=== PATIENT | male | born 1960 | race Caucasian/White ===

== ENCOUNTER → 2020-10-23 | Outpatient (CLI) | payer MEDICARE ==
--- NOTE | 2020-10-24 13:42 | MR ---
EXAMINATION TYPE: MR cervical spine wo/w con DATE OF EXAM: 10/23/2020 COMPARISON: Cervical spine MRI 03/15/2015 HISTORY: Neck pain into jagdish upper extremities, headaches, slip and fall injury. TECHNIQUE: Multiplanar, multisequence images of the cervical spine were acquired utilizing 8.5 mL intravenous Ga davist gadolinium contrast. Diffusion weighted imaging was performed. C2-C3: Posterior disc bulge causes mild anterior mass effect on the thecal sac. Facet arthropathy wit h some uncovertebral joint hypertrophy encroaches mildly on the neural foramina. No significant spina l stenosis. C3-C4: Posterior extension endplate disc complex effaces the anterior thecal sac, there is mild to mo derate central canal stenosis. Foraminal encroachment is present left greater than right due to uncov ertebral joint hypertrophy, facet arthropathy. C4-C5: Posterior extension of endplate disc complex results in mass effect on the anterior thecal sac . Mild to moderate central canal stenosis is again noted. There is bilateral foraminal encroachment. C5-C6: Bilateral foraminal encroachment is present. No evident recurrent disc herniation. No signific ant spinal stenosis. C6-C7: No significant spinal stenosis or disc herniation. Uncovertebral joint hypertrophy and facet a rthropathy results in left-sided foraminal encroachment. C7-T1: Uncovertebral joint hypertrophy encroaches upon the neural foramina. No significant spinal zack nosis, and there is posterior extension endplate disc complex causing mild anterior mass effect on th e thecal sac. Patient is post anterior cervical fusion and discectomy at C5-C7. Loss of disc height is present at i ntervertebral levels, there is spondylosis at C2-3, C3-4 with associated loss of disc height, endplat e discogenic marrow signal changes noted.. There is normal alignment. Cervical spinal cord is of no rmal signal. Craniovertebral junction relationships are within normal limits. No abnormal enhanceme nt following contrast administration. IMPRESSION: Stopped changes, multilevel foraminal encroachment, degenerative disc disease and spinal stenosis as described
== END | disposition home or self-care (01) ==
LOC: RADMRIMAIN 07:23
PROVIDERS: ATTEND Orthopaedic Surgery Orthopaedic Surgery of the Spine
DX: M48.02 Spinal stenosis, cervical region (principal)
CPT/HCPCS: 72156; A9585

== ENCOUNTER 2020-12-14 21:34 | Observation (INO) | payer MEDICARE ==
--- NOTE | 2020-12-14 22:04 | ED ---
Chest Pain HPI - General Chief Complaint: Chest Pain Stated Complaint: chest pain,L arm pain Time Seen by Provider: 12/14/20 21:49 Source: patient Mode of arrival: ambulatory Limitations: no limitations - Related Data Home Medications Medication Instructions Recorded Confirmed Aspirin EC [Ecotrin Low Dose] 81 mg PO DAILY 12/14/20 12/14/20 Cyclobenzaprine [Flexeril] 10 mg PO TID 12/14/20 12/14/20 HYDROcodone/APAP 10-325MG [[place] 1 tab PO TID 12/14/20 12/14/20 10-325] Pravastatin Sodium [Pravachol] 20 mg PO HS 12/14/20 12/14/20 Tamsulosin [Flomax] 0.4 mg PO DAILY 12/14/20 12/14/20 Allergies Allergy/AdvReac Type Severity Reaction Status Date / Time meloxicam Allergy Rash/Hives Verified 12/14/20 22:39 Kifihdf-Svz-Trh Reductase Allergy Unknown Verified 12/14/20 22:39 Inhibitor Review of Systems ROS Statement: Those systems with pertinent positive or pertinent negative responses have been documented in the HPI. ROS Other: All systems not noted in ROS Statement are negative. EKG Findings - EKG Comments: EKG Findings:: EKG is sinus rhythm 81 VT 160 QRS 80 QTC 425 Past Medical History Past Medical History: Coronary Artery Disease (CAD) Additional Past Medical History / Comment(s): chronic neck pain History of Any Multi-Drug Resistant Organisms: None Reported Additional Past Surgical History / Comment(s): aortic repair. neck fusion Past Psychological History: No Psychological Hx Reported Smoking Status: Current every day smoker Past Alcohol Use History: None Reported Past Drug Use History: None Reported General Exam Limitations: no limitations Course Vital Signs 12/14/20 12/14/20 21:42 23:22 Temperature 98.9 F Pulse Rate 85 80 Respiratory 20 18 Rate Blood Pressure 117/76 133/89 O2 Sat by Pulse 94 L 94 L Oximetry Disposition Clinical Impression: Chest pain Disposition: ADMITTED IP TO THIS HOSP Condition: Undetermined Instructions (If sedation given, give patient instructions): Chest Pain (ED) Is patient prescribed a controlled substance at d/c from ED?: No Referrals: Noah Mcdonough MD [Primary Care Provider] - 1-2 days
--- NOTE | 2020-12-14 22:26 | XR ---
EXAMINATION TYPE: XR chest 2V DATE OF EXAM: 12/14/2020 COMPARISON: NONE HISTORY: Chest pain TECHNIQUE: FINDINGS: There is some mild atelectasis at the lung bases. There is some pleural reaction at both michael ng bases. There is no obvious heart failure. There are sternal wires. Heart size is normal. There are chest leads. IMPRESSION: There is some pleural reaction and atelectasis at both lung bases. No obvious heart failu re.
[2020-12-14 22:28] LABS: Basophils # (A) 0.1 k/uL (0-0.2); Basophils % (A) 1 %; Eosinophils # (A) 0.3 k/uL (0-0.7); Eosinophils % (A) 3 %; HCT 44.7 % (39.0-53.0); HGB 15.6 gm/dL (13.0-17.5); Lymphocytes # (A) 1.2 k/uL (1.0-4.8); Lymphocytes % (A) 10 %; MCH 30.2 pg (25.0-35.0); MCHC 34.8 g/dL (31.0-37.0); MCV 86.7 fL (80.0-100.0); Mean Platelet Volume 7.3; Monocytes # (A) 0.9 k/uL (0-1.0); Monocytes % (A) 7 %; Neutrophils # (A) 9.8 k/uL (1.3-7.7); Neutrophils % (A) 79 %; Platelet Count 254 k/uL (150-450); RBC 5.15 m/uL (4.30-5.90); RDW 12.9 % (11.5-15.5); WBC 12.4 k/uL (3.8-10.6)
[2020-12-14 22:39] LABS: Partial Thromboplastin Time 25.3 sec (22.0-30.0); Prothrombin Time 10.7 sec (9.0-12.0)
[2020-12-14 22:40] LABS: ALT 24 U/L (4-49); AST 30 U/L (17-59); African American GFR (CKD) >90 (>60 ml/min/1.73 sqM); Albumin 3.9 g/dL (3.5-5.0); Alkaline Phosphatase 89 U/L (38-126); Anion Gap 7 mmol/L; Blood Urea Nitrogen 9 mg/dL (9-20); Calcium 9.5 mg/dL (8.4-10.2); Carbon Dioxide 24 mmol/L (22-30); Chloride 103 mmol/L (98-107); Glucose 108 mg/dL (74-99); Magnesium 1.7 mg/dL (1.6-2.3); Non-African American GFR(CKD) >90 (>60 ml/min/1.73 sqM); Sodium 134 mmol/L (137-145); Total Bilirubin 0.4 mg/dL (0.2-1.3); Total Protein 6.1 g/dL (6.3-8.2)
[2020-12-14] MEDS ORDERED: ASPIRIN 81 MG PO STA (23:52)
[2020-12-14] MEDS ORDERED: NITROGLYCERIN SL TABS 0.4 MG TAB SUBLINGUAL PRN (23:52)
[2020-12-14] MEDS ORDERED: MORPHINE SULFATE 4 MG/ML SYRINGE IV PRN (23:52)
[2020-12-15] MEDS: SODIUM CHLORIDE 0.9% 1,000 ML IV SCH ×2 (00:07→23:32)
--- NOTE | 2020-12-15 01:30 | P.HPIM ---
History of Present Illness H&P Date: 12/15/20 Patient is a 60-year-old male with a PMH of coronary artery disease, hyperlipidemia, BPH, and tobacco abuse who presented to the emergency room with complaints of left-sided chest pain. The patient reports that his pain started on Wednesday after he went on a row boat and felt that he may have pulled a muscle. He initially did not think much of it until the pain continued to gradually worsened, and has now become severely pleuritic and tender. He reports that maximal intensity is 10 out of 10, throughout the left side of the chest but is able to point to the precise area. Reports that coughing or taking a deep breath significantly worsens the pain. Notes that sitting up and walking alleviate the pain. Denied nausea, vomiting, diaphoresis. Denied fever, chills, cough. Denied headache, weakness, numbness, tingling, visual disturbances. Patient denied history of DVT, leg swelling, or prolonged immobilization or recent travel. EKG in the emergency room revealed normal sinus rhythm at [address]/T-wave changes noted as reviewed by me. Chest x-ray revealed some pleural reaction and atelectasis at both lung bases. Laboratory evaluation revealed a troponin less than 0.012. Review of systems: Pertinent positives and negatives as discussed in HPI, a complete review of sys tems was performed and all other systems are negative. Physical examination: General: non toxic, no distress, appears at stated age, normal weight Derm: no unusual rashes/lesions no unusual ecchymoses, warm, dry Head: atraumatic, normocephalic, symmetric Eyes: EOMI, no lid lag, anicteric sclera, pupils equal round reactive to light ENT: Nose and ears atraumatic, no thrush, no pharyngeal erythema Neck: No thyromegaly, no cervical lymphadenopathy, trachea midline, supple Mouth: no lip lesion, mucus membranes moist Cardiovascular: S1S2 reg, no murmur, positive posterior tibial pulse bilateral, no edema, capillary refill less than 2 seconds, L sided chest tenderness Lungs: CTA bilateral, no rhonchi, no rales , no accessory muscle use Abdominal: soft, nontender to palpation, no guarding, no appreciable organomegaly, normal bowel sounds Ext: no gross muscle atrophy, muscle strength 5 out of 5 in all 4 extremities grossly, no contractures, Neuro: CN II-XI grossly intact, light touch intact all 4 extremities, finger to nose within normal limits, Psych: Alert, oriented, appropriate affect Assessment/plan Atypical chest pain, rule out ACS -Continue with aspirin -Cardiac monitoring -Cardiology consult -Trend troponin -Check D-Dimer Leukocytosis -Likely due to acute stressor -No signs of active infection at this time Chronic conditions: Hyperlipidemia, BPH -Continue with home meds DVT prophylaxis -Heparin subcu The patient is admitted with an anticipated less than 2 midnight stay for evaluation of chest pain CODE STATUS:Full Code Discussed with: Patient Anticipated discharge date: in am Anticipated discharge place: Home Past Medical History Past Medical History: Coronary Artery Disease (CAD) Additional Past Medical History / Comment(s): chronic neck pain History of Any Multi-Drug Resistant Organisms: None Reported Additional Past Surgical History / Comment(s): aortic repair. neck fusion Past Psychological History: No Psychological Hx Reported Smoking Status: Current every day smoker Past Alcohol Use History: None Reported Past Drug Use History: None Reported - Past Family History Father Family Medical History: Coronary Artery Disease (CAD) Medications and Allergies Home Medications Medication Instructions Recorded Confirmed Type Aspirin EC [Ecotrin Low Dose] 81 mg PO DAILY 12/14/20 12/14/20 History Cyclobenzaprine [Flexeril] 10 mg PO TID 12/14/20 12/14/20 History HYDROcodone/APAP 10-325MG [[place] 1 tab PO TID 12/14/20 12/14/20 History 10-325] Pravastatin Sodium [Pravachol] 20 mg PO HS 12/14/20 12/14/20 History Tamsulosin [Flomax] 0.4 mg PO DAILY 12/14/20 12/14/20 History Allergies Allergy/AdvReac Type Severity Reaction Status Date / Time meloxicam Allergy Rash/Hives Verified 12/14/20 22:39 Axwtcax-Nry-Hzq Reductase Allergy Unknown Verified 12/14/20 22:39 Inhibitor Physical Exam Vitals: Vital Signs Temp Pulse Resp BP Pulse Ox 12/15/20 00:08 75 18 116/72 94 L 12/14/20 23:22 80 18 133/89 94 L 12/14/20 21:42 98.9 F 85 20 117/76 94 L Intake and Output 12/14/20 12/14/20 12/15/20 14:59 22:59 06:59 Other: Weight 86.183 kg Results CBC & Chem 7: 12/14/20 22:19 12/14/20 22:19 Labs: Abnormal Lab Results - Last 24 Hours (Table) 12/14/20 12/14/20 Range/Units 22:19 22:19 WBC 12.4 H (3.8-10.6) k/uL Neutrophils # 9.8 H (1.3-7.7) k/uL Sodium 134 L (137-145) mmol/L Glucose 108 H (74-99) mg/dL Total Protein 6.1 L (6.3-8.2) g/dL
[2020-12-15 04:22] LABS: HCT 43.8 % (39.0-53.0); HGB 15.2 gm/dL (13.0-17.5); MCH 30.3 pg (25.0-35.0); MCHC 34.6 g/dL (31.0-37.0); MCV 87.3 fL (80.0-100.0); Mean Platelet Volume 7.9; Platelet Count 243 k/uL (150-450); RBC 5.01 m/uL (4.30-5.90); RDW 12.9 % (11.5-15.5); WBC 10.3 k/uL (3.8-10.6)
[2020-12-15] MEDS: TAMSULOSIN 0.4 MG CAP.ER.24H PO SCH (08:08)
[2020-12-15] MEDS: CYCLOBENZAPRINE 10 MG TAB PO SCH ×3 (08:08→20:46)
[2020-12-15] MEDS: HEPARIN SODIUM,PORCINE/PF 5,000 UNIT/0.5 ML SYRINGE SQ SCH ×2 (08:08→16:22)
[2020-12-15] MEDS ORDERED: ASPIRIN 325 MG TAB PO SCH (09:00)
[2020-12-15 09:40] LABS: Chol/HDL Ratio 3.32
[2020-12-15] MEDS ORDERED: MORPHINE SULFATE 2 MG/ML SYRINGE IV PRN (11:44)
--- NOTE | 2020-12-15 11:46 | P.PN ---
Subjective Patient was seen and evaluated by me this morning. History complaining of chest pain mostly in the left chest area. Pain appeared to be reproducible on exam. Objective - Vital Signs Vital signs: Vital Signs Temp 98 F 12/15/20 07:15 Pulse 75 12/15/20 07:15 Resp 16 12/15/20 07:15 BP 122/77 12/15/20 07:15 Pulse Ox 95 12/15/20 07:15 Intake & Output 12/14/20 12/15/20 12/15/20 18:59 06:59 18:59 Weight 86.183 kg 86.183 kg - Exam General: The patient is awake and alert, in no distress Eye: there is normal conjunctiva bilaterally. Neck: The neck is supple, there is no JVD. Cardiovascular: Normal S1-S2, no S3-S4, no murmurs. Respiratory: Lungs clear to auscultation bilaterally Gastrointestinal: Abdomen is soft, nontender Musculoskeletal: There is no pedal edema. Neurological:. Speech is normal. Skin: Skin is warm and dry - Labs CBC & Chem 7: 12/15/20 02:12 12/14/20 22:19 Labs: Abnormal Lab Results - Last 24 Hours (Table) 12/14/20 12/14/20 12/15/20 Range/Units 22:19 22:19 02:12 WBC 12.4 H (3.8-10.6) k/uL Neutrophils # 9.8 H (1.3-7.7) k/uL Sodium 134 L (137-145) mmol/L Glucose 108 H (74-99) mg/dL Total Protein 6.1 L (6.3-8.2) g/dL HDL Cholesterol 37.0 L (40.0-60.0) mg/dL Assessment and Plan Assessment: 1. Chest pain, mostly atypical in nature. ACS ruled out. Serial troponin negative 3 sets. Pain is reducible on exam. Awaiting cardiology evaluation. 2. Chronic medical problems: Coronary artery disease status post CABG, hyperlipidemia, BPH, and tobacco abuse. Today, I reviewed his medication list and lab work results. LDL is 65. Continue medical management. Patient was counseled extensively regarding the importance of tobacco cessation. Awaiting cardiology evaluation.
--- NOTE | 2020-12-15 13:28 | P.CRDCN ---
History of Present Illness Consult date: 12/15/20 Requesting physician: Robert Almazan Reason for Consult (text): cp Chief complaint: chest pain History of present illness: This is a pleasant 60-year-old gentleman who follows with Dr. Warren for car diology from out of town. 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 He has a history of smoking over one pack per day, thoracic aortic aneurysm repair with no valve, denies history of CAD, hypertension, or diabetes. Does have a history of hyperlipidemia and is on a statin. Also has a history of cervical spine injury and prior fusion and is anticipating needing repeat surgery. Presented to the emergency department with complaints of chest discomfort. It apparently been pulling a panel board out of the canal at which time he developed some left-sided chest discomfort. The pain initially felt better but subsequently became worse and yesterday was significantly worse with an increase in the pain with deep inspiration, coughing and sneezing as well as certain position changes and palpation. This examination showed some pleural reaction and atelectasis at both lung bases, no obvious heart failure. EKG showed sinus rhythm with no acute ST-T wave abnormalities. A return evaluation sodium 134, potassium 4.0, BUN 9 and creatinine of 0.8. Troponins of the negative 3. On examination the patient is resting comfortable in bed. Vital signs of an stable he's been afebrile. Continues to complain of left-sided chest discomfort. There is some tenderness to palpation. He's had no ischemic workup in several years. Past Medical History Past Medical History: Coronary Artery Disease (CAD) Additional Past Medical History / Comment(s): chronic neck pain History of Any Multi-Drug Resistant Organisms: None Reported Additional Past Surgical History / Comment(s): aortic repair. neck fusion Smoking Status: Current every day smoker - Past Family History Father Family Medical History: Coronary Artery Disease (CAD) Medications and Allergies Home Medications Medication Instructions Recorded Confirmed Type Aspirin EC [Ecotrin Low Dose] 81 mg PO DAILY 12/14/20 12/14/20 History Cyclobenzaprine [Flexeril] 10 mg PO TID 12/14/20 12/14/20 History HYDROcodone/APAP 10-325MG [[place] 1 tab PO TID 12/14/20 12/14/20 History 10-325] Pravastatin Sodium [Pravachol] 20 mg PO HS 12/14/20 12/14/20 History Tamsulosin [Flomax] 0.4 mg PO DAILY 12/14/20 12/14/20 History Allergies Allergy/AdvReac Type Severity Reaction Status Date / Time meloxicam Allergy Rash/Hives Verified 12/14/20 22:39 Skupjgq-Gwn-Iet Reductase Allergy Unknown Verified 12/14/20 22:39 Inhibitor Physical Exam Vitals: Vital Signs Temp Pulse Pulse Resp BP BP Pulse Ox 12/15/20 07:15 98 F 75 16 122/77 95 12/15/20 07:01 89 18 102/74 96 12/15/20 00:08 75 18 116/72 94 L 12/14/20 23:22 80 18 133/89 94 L 12/14/20 21:42 98.9 F 85 20 117/76 94 L Intake and Output 12/14/20 12/15/20 12/15/20 22:59 06:59 14:59 Other: Weight 86.183 kg 86.183 kg PHYSICAL EXAMINATION: This is a 60-year-old male in no apparent distress at the time of my examination. VITAL SIGNS: Blood pressure 122/77, heart rate 75, respirations 16, temp 98F. Patient is 95 % on room air. HEENT: Head is atraumatic, normocephalic. Pupils are equal, round. Sclerae anicteric. Conjunctivae are clear. Mucous membranes of the mouth are moist. Neck is supple. There is no elevated jugular venous pressure. No carotid bruit is heard. CHEST EXAMINATION: Clear to auscultation bilaterally. No wheezes rales or rhonchi. Respirations even and nonlabored. HEART EXAMINATION: Heart regular, positive S1 and S2. No S3. No S4. With a systolic murmur. ABDOMEN: Soft, nontender. Bowel sounds are heard. No organomegaly noted. EXTREMITIES: 2+ peripheral pulses with no evidence of peripheral edema and no calf tenderness noted. NEUROLOGIC EXAMINATION: Patient is awake, alert and oriented x3. Results 12/15/20 02:12 12/14/20 22:19 Cardiac Enzymes 12/14/20 12/14/20 12/15/20 Range/Units 22:19 22:19 00:54 AST 30 (17-59) U/L Troponin I <0.012 <0.012 (0.000-0.034) ng/mL 12/15/20 Range/Units 02:12 AST (17-59) U/L Troponin I <0.012 (0.000-0.034) ng/mL Coagulation 12/14/20 Range/Units 22:19 PT 10.7 (9.0-12.0) sec APTT 25.3 (22.0-30.0) sec Lipids 12/15/20 Range/Units 02:12 Triglycerides 105.0 (0.0-149.0) mg/dL Cholesterol 123 (0-200) mg/dL HDL Cholesterol 37.0 L (40.0-60.0) mg/dL Cholesterol/HDL Ratio 3.32 CBC 12/14/20 12/15/20 Range/Units 22:19 02:12 WBC 12.4 H 10.3 (3.8-10.6) k/uL RBC 5.15 5.01 (4.30-5.90) m/uL Hgb 15.6 15.2 (13.0-17.5) gm/dL Hct 44.7 43.8 (39.0-53.0) % Plt Count 254 243 (150-450) k/uL Comprehensive Metabolic Panel 12/14/20 Range/Units 22:19 Sodium 134 L (137-145) mmol/L Potassium 4.0 (3.5-5.1) mmol/L Chloride 103 (98-107) mmol/L Carbon Dioxide 24 (22-30) mmol/L BUN 9 (9-20) mg/dL Creatinine 0.80 (0.66-1.25) mg/dL Glucose 108 H (74-99) mg/dL Calcium 9.5 (8.4-10.2) mg/dL AST 30 (17-59) U/L ALT 24 (4-49) U/L Alkaline Phosphatase 89 (38-126) U/L Total Protein 6.1 L (6.3-8.2) g/dL Albumin 3.9 (3.5-5.0) g/dL Current Medications Generic Name Dose Route Start Last Admin Trade Name Freq PRN Reason Stop Dose Admin Hydrocodone Bitart/Acetaminophen 1 each 12/15/20 16:00 Hydrocodone/Apap 10-325mg 1 Each Tab PO TID ED Aspirin 81 mg 12/16/20 09:00 Aspirin 81 Mg PO DAILY ED Cyclobenzaprine HCl 10 mg 12/15/20 09:00 12/15/20 08:08 Cyclobenzaprine 10 Mg Tab PO 10 mg TID ED Administration Heparin Sodium (Porcine) 5,000 unit 12/15/20 08:00 12/15/20 08:08 Heparin Sodium,Porcine/Pf 5,000 Unit/0.5 Ml Syringe SQ 5,000 unit Q8HR ED Administration Sodium Chloride 1,000 mls @ 20 mls/hr 12/14/20 23:45 12/15/20 00:07 Saline 0.9% IV 20 mls/hr .Q24H ED Administration Morphine Sulfate 2 mg 12/15/20 11:44 Morphine Sulfate 2 Mg/Ml Syringe IV Q4HR PRN Moderate-Severe Chest Pain Nitroglycerin 0.4 mg 12/14/20 23:52 Nitroglycerin Sl Tabs 0.4 Mg Tab SUBLINGUAL Q5M PRN Chest Pain Pravastatin Sodium 20 mg 12/15/20 21:00 Pravastatin Sodium 20 Mg Tab PO HS ED Tamsulosin HCl 0.4 mg 12/15/20 09:00 12/15/20 08:08 Tamsulosin 0.4 Mg Cap.Er.24h PO 0.4 mg DAILY ED Administration Intake and Output 12/14/20 12/15/20 12/15/20 22:59 06:59 14:59 Other: Weight 86.183 kg 86.183 kg Patient Weight 12/16/20 06:59 Weight 86.183 kg 12/15/20 02:12 12/14/20 22:19 Assessment and Plan Assessment: #1 symptoms of chest discomfort, atypical, acute coronary event has been ruled out #2 history of thoracic aortic aneurysm, status post repair in 2016 #3 hyperlipidemia #4 nicotine dependence Plan: From cardiology's perspective we will obtain a 2-D echo with Doppler to assess cardiac structure and function. We will also schedule the patient to undergo stress echocardiogram tomorrow to rule out underlying ischemia. Further recommendations to follow. ASSISTANT PROFESSOR OF ENGLISH note has been reviewed, I agree with a documented findings and plan of care. Patient was seen and examined.
[2020-12-15] MEDS: HYDROcodone/APAP 10-325MG 1 EACH TAB PO SCH ×2 (16:22→20:46)
[2020-12-15] MEDS: PRAVASTATIN SODIUM 20 MG TAB PO SCH (20:47)
[2020-12-16] MEDS: HEPARIN SODIUM,PORCINE/PF 5,000 UNIT/0.5 ML SYRINGE SQ SCH ×3 (00:33→15:16)
[2020-12-16] MEDS: HYDROcodone/APAP 10-325MG 1 EACH TAB PO SCH ×3 (08:47→21:22)
[2020-12-16] MEDS: TAMSULOSIN 0.4 MG CAP.ER.24H PO SCH (08:47)
[2020-12-16] MEDS: CYCLOBENZAPRINE 10 MG TAB PO SCH ×3 (08:48→21:22)
[2020-12-16] MEDS: ASPIRIN 81 MG PO SCH (08:48)
--- NOTE | 2020-12-16 13:31 | ECHOF ---
Referral Reason:cp MEASUREMENTS -------- HEIGHT: 177.8 cm WEIGHT: 86.2 kg BP: 134/84 RVIDd: 3.5 cm (< 3.3) IVSd: 1.2 cm (0.6 - 1.1) LVIDd: 4.5 cm (3.9 - 5.3) LVPWd: 1.3 cm (0.6 - 1.1) IVSs: 2.0 cm LVIDs: 2.7 cm LVPWs: 1.8 cm LA Diam: 3.8 cm (2.7 - 3.8) LAESV Index (A-L): 23.70 ml/m Ao Diam: 3.4 cm (2.0 - 3.7) AV Cusp: 2.0 cm (1.5 - 2.6) MV EXCURSION: 18.395 mm (> 18.000) MV EF SLOPE: 75 mm/s (70 - 150) EPSS: 0.4 cm MV E Mckinley: 0.55 m/s MV DecT: 254 ms MV A Mckinley: 0.63 m/s MV E/A Ratio: 0.86 AR PHT: 466 ms RAP: 5.00 mmHg RVSP: 22.92 mmHg FINDINGS -------- Sinus rhythm. Suboptimal image quality - poor subcostal views. The left ventricular size is normal. There is mild concentric left ventricular hypertrophy. Overa ll left ventricular systolic function is low-normal with, an EF between 50 - 55 %. The right ventricle is mildly enlarged. Normal LA size by volume 22+/-6 ml/m2. The right atrium is normal in size. There is mild aortic regurgitation. Mild mitral regurgitation is present. Trace tricuspid regurgitation present. Right ventricular systolic pressure is normal at < 35 mmHg. Trace/mild (physiologic) pulmonic regurgitation. The aortic root size is normal. IVC Not well visulized. There is no pericardial effusion. CONCLUSIONS -------- 1. The left ventricular size is normal. 2. There is mild concentric left ventricular hypertrophy. 3. Overall left ventricular systolic function is low-normal with, an EF between 50 - 55 %. 4. The right ventricle is mildly enlarged. 5. Normal LA size by volume 22+/-6 ml/m2. 6. There is mild aortic regurgitation. 7. Mild mitral regurgitation is present. 8. Trace tricuspid regurgitation present. 9. Trace/mild (physiologic) pulmonic regurgitation. 10. There is no pericardial effusion. CENTER LINE CUTTER OPERATOR: Sharon Tejeda RDCS
--- NOTE | 2020-12-16 16:05 | P.PN ---
Subjective Patient is doing well today. He is scheduled for cardiac stress test today. Objective - Vital Signs Vital signs: Vital Signs Temp 97.7 F 12/16/20 15:00 Pulse 95 12/16/20 15:00 Resp 18 12/16/20 15:00 BP 120/75 12/16/20 15:00 Pulse Ox 94 L 12/16/20 15:00 Intake & Output 12/15/20 12/16/20 12/16/20 18:59 06:59 18:59 Intake Total 118 180 Balance 118 180 Weight 86.183 kg 86.18 kg Intake: Oral 118 180 Other: Voiding Method Toilet # Voids 1 1 2 - Exam General: The patient is awake and alert, in no distress Eye: there is normal conjunctiva bilaterally. Neck: The neck is supple, there is no JVD. Cardiovascular: Normal S1-S2, no S3-S4, no murmurs. Respiratory: Lungs clear to auscultation bilaterally Gastrointestinal: Abdomen is soft, nontender Musculoskeletal: There is no pedal edema. Neurological:. Speech is normal. Skin: Skin is warm and dry - Labs CBC & Chem 7: 12/15/20 02:12 12/14/20 22:19 Assessment and Plan Assessment: 1. Chest pain, mostly atypical in nature. ACS ruled out. Serial troponin negative 3 sets. Pain is reducible on exam. Echocardiogram showed preserved ejection fraction of 50-55% with no significant valvular or wall motion abnormalities 2. Chronic medical problems: Coronary artery disease status post CABG, hyperlipidemia, BPH, and tobacco abuse. Today, I reviewed his medication list and lab work results. LDL is 65. Continue medical management. Patient was counseled extensively regarding the importance of tobacco cessation. Awaiting stress test result
[2020-12-16] MEDS: PRAVASTATIN SODIUM 20 MG TAB PO SCH (21:22)
[2020-12-17] MEDS: HEPARIN SODIUM,PORCINE/PF 5,000 UNIT/0.5 ML SYRINGE SQ SCH ×2 (00:25→08:10)
[2020-12-17] MEDS: SODIUM CHLORIDE 0.9% 1,000 ML IV SCH (00:26)
[2020-12-17 02:41] VITALS: TEMP 97.7
[2020-12-17] MEDS: HYDROcodone/APAP 10-325MG 1 EACH TAB PO SCH (08:10)
[2020-12-17] MEDS: ASPIRIN 81 MG PO SCH (08:10)
[2020-12-17] MEDS: TAMSULOSIN 0.4 MG CAP.ER.24H PO SCH (08:10)
[2020-12-17] MEDS: CYCLOBENZAPRINE 10 MG TAB PO SCH (08:10)
[2020-12-17 08:53] VITALS: BP 124/85; PULSE 74; RESP 16
--- NOTE | 2020-12-17 12:26 | P.PN ---
Subjective Progress Note Date: 12/17/20 HISTORY OF PRESENT ILLNESS: This is a pleasant 60-year-old gentleman who follows with Dr. Warren for cardiology from out of town. He admits to not seeing his sap technical architect in over a year. He has a history of smoking over one pack per day, thoracic aortic aneurysm repair with no valve, denies history of CAD, hypertension, or diabetes. Does have a history of hyperlipidemia and is on a statin. Also has a history of cervical spine injury and prior fusion and is anticipating needing repeat surgery. Presented to the emergency department with complaints of chest discomfort. It apparently been pulling a panel board out of the canal at which time he developed some left-sided chest discomfort. The pain initially felt better but subsequently became worse and yesterday was significantly worse with an increase in the pain with deep inspiration, coughing and sneezing as well as certain position changes and palpation. This examination showed some pleural reaction and atelectasis at both lung bases, no obvious heart failure. EKG showed sinus rhythm with no acute ST-T wave abnormalities. A return evaluation sodium 134, potassium 4.0, BUN 9 and creatinine of 0.8. Troponins of the negative 3. On examination the patient is resting comfortable in bed. Vital signs of an stable he's been afebrile. Continues to complain of left-sided chest discomfort. There is some tenderness to palpation. He's had no ischemic workup in several years. 12/17/2020 Patient examined this morning at the bedside. Patient denies chest pain or pressure. He denies shortness of breath. Echocardiogram completed revealed ejection fraction 50-55%. Mild aortic regurgitation. Mild mitral regurgitation. Mild tricuspid regurgitation. [facility]induced [facility]. PHYSICAL EXAM: VITAL SIGNS: Reviewed. GENERAL: Well-developed in no acute distress. NECK: Supple. No JVD or thyromegaly LUNGS: Respirations even and unlabored. Lungs essentially clear to auscultation bilaterally. HEART: Regular rate and rhythm. S1 and S2 heard. Systolic murmur noted. EXTREMITIES: Normal range of motion. No clubbing or cyanosis. Peripheral pulses intact. No lower extremity edema ASSESSMENT: #1 symptoms of chest discomfort, atypical, acute coronary event has been ruled out #2 history of thoracic aortic aneurysm, status post repair in 2016 #3 hyperlipidemia #4 nicotine dependence PLAN: Patient is stable for discharge home today from a cardiac standpoint. He is requesting to follow up with his sap technical architect in [place] Nurse practitioner note has been reviewed by physician. Signing provider agrees with the documented findings, assessment, and plan of care. Objective - Vital Signs Vital signs: Vital Signs Temp 97.7 F 12/17/20 07:00 Pulse 74 12/17/20 07:00 Resp 16 12/17/20 07:00 BP 124/85 12/17/20 07:00 Pulse Ox 94 L 12/17/20 07:00 Intake & Output 12/16/20 12/17/20 12/17/20 18:59 06:59 18:59 Intake Total 330 118 Balance 330 118 Weight 86.18 kg Intake: Oral 330 118 Other: Voiding Method Toilet Toilet # Voids 2 2 - Labs CBC & Chem 7: 12/15/20 02:12 12/14/20 22:19
--- NOTE | 2020-12-17 12:39 | ECHOS ---
STRESS ECHOCARDIOGRAM DATE OF SERVICE: 12/17/2020. INDICATIONS: Chest Pain BASELINE HEART RATE: 76 BASELINE BLOOD PRESSURE: 103/52 MAXIMUM HEART RATE: 137 MAXIMUM BLOOD PRESSURE: 158/72 85% MPHR: 136 100% MPHR: 160 METS: 7.3 MAXIMUM STAGE REACHED: 3 TOTAL EXERCISE TIME: 7:04 INDICATION: Chest pain. CLINICAL INFORMATION: STRESS DATA: Heart rate 76, pressure 103/52 mmHg. Baseline EKG showed sinus mechanism. The patient exercised on the treadmill according to Chuy protocol for a total of 7 minutes and achieved 7.3 METS. Max heart rate was 137, which is about 85% of maximum predicted heart rate. Maximum blood pressure was 178/84 mmHg. Clinically the patient did not have any symptoms of chest pain or chest discomfort during the testing or on recovery. The EKG did not show any significant ST or T-wave abnormalities concerning for ischemia. ECHOCARDIOGRAM IMAGES: On echocardiogram images from parasternal long axis view, parasternal short axis view, apical 4-chamber and apical 2-chamber views were obtained as the baseline images, at the peak of the heart rate as well as on recovery. The echocardiogram images showed basal inferior wall hypokinesia on resting and did not change with recovery. No evidence of wall motion abnormalities concerning for ischemia noted. CONCLUSION: 1. Good exercise tolerance. 2. Normal EKG in response to exercise. 3. Overall normal echocardiogram in response to exercise. MMODL / IJN: [id number] /
--- NOTE | 2020-12-17 14:00 | P.DS ---
<Barak Pizano - Last Filed: 12/17/20 13:45> Providers Expected date of discharge: 12/17/20 Hospital Course: Discharge Diagnosis: Atypical chest pain, acute coronary event ruled out. Costochondritis History of coronary artery disease status post CABG, Hyperlipidemia BPH Nicotine dependence Hospital Course: Patient is a 60-year-old male with a past medical history of CAD status post CABG, hyperlipidemia, BPH, and tobacco dependence. He presented to the hospital on 12/14/20 with a chief complaint of chest pain. Chest X-ray was completed negative for acute cardiopulmonary process. Troponins trended 3 negative. EKG normal sinus rhythm at 81 bpm. Echocardiogram completed with a preserved EF of 50-55%. lipid profile normal findings with the exception of low HDL of 37. Covid PCR negative. D-dimer normal findings at 0.50. Patient reports he was kayaking and lifted paddle boat out of water and later that evening began to have pain to his left anterior chest and into his left shoulder. Patient reports pain increases with deep inspiration, movement, and palpation. patient was seen, fully evaluated, and cleared by cardiology as an acute coronary event has been ruled out. chest pain secondary to costochondritis. patient reportsthat on Wednesday when this pain initially started he was given this diagnosis through virtual appointment and given a prescription for prednisone taper and instructed to take his muscle relaxer. Patient reports the pharmacy was closed and he did not get his prescription picked up but due to his persistent chest pain and cardiac history he thought it was best to make sure this pain wasn't cardiac. Patient is medically stable for discharge home.patient instructed that he can continue his prednisone and muscle relaxer as prescribed to him by his PCP prior to arrival in hospital for treatment of his Costochondritis. Patient to continue daily medication regimen with no changes made. Patient instructed to follow-up with PCP in 1-2 days and with his county extension agent in [place] as he requested in 1 week.. Physical Examination Vital signs reviewed and stable. General: Nontoxic, no distress and appears stated age. Derm: Skin warm and dry, normal coloration for ethnicity. Head: Atraumatic, normocephalic and symmetric. Eyes: EOMs intact, no lid lag, and anicteric sclera Mouth: no lip lesions, mucus membranes moist Cardiovascular: regular rate and rhythm with normal S1S2, no murmur, positive posterior tibial pulses bilaterally, and cap refill < 2 seconds. Lungs: Respirations even, regular, and unlabored on room air. Lungs CTA bilaterally, no rhonchi, no rales, no wheezing, and no accessory muscle usage. Abdominal: soft, nontender to palpation, no guarding, no appreciable organome yolanda Ext: ROM intact. No gross muscle atrophy, no edema, no contractures Neuro: Speech clear, face symmetrical and CN II-XII grossly intact with no noted focal neuro deficits Psych: Alert and oriented to person, place, time, and situation. Appropriate and pleasant affect. A total of 45 minutes of time were spent preparing this complex discharge summary. Assessment: I reviewed the documentation as provided by the MOUNA above, who is the original author of this note. I agree with the documented assessment and plan, with the following changes: none Patient Condition at Discharge: Stable Plan - Discharge Summary Discharge Rx Participant: No New Discharge Prescriptions: Continue Aspirin EC [Ecotrin Low Dose] 81 mg PO DAILY Tamsulosin [Flomax] 0.4 mg PO DAILY Pravastatin Sodium [Pravachol] 20 mg PO HS HYDROcodone/APAP 10-325MG [[place] 10-325] 1 tab PO TID Cyclobenzaprine [Flexeril] 10 mg PO TID Discharge Medication List Aspirin EC [Ecotrin Low Dose] 81 mg PO DAILY 12/14/20 [History] Cyclobenzaprine [Flexeril] 10 mg PO TID 12/14/20 [History] HYDROcodone/APAP 10-325MG [[place] 10-325] 1 tab PO TID 12/14/20 [History] Pravastatin Sodium [Pravachol] 20 mg PO HS 12/14/20 [History] Tamsulosin [Flomax] 0.4 mg PO DAILY 12/14/20 [History] Follow up Appointment(s)/Referral(s): Noah Mcdonough MD [Primary Care Provider] - 1-2 days Patient Instructions/Handouts: Chest Pain (ED) Activity/Diet/Wound Care/Special Instructions: Activity: As tolerated Diet: Heart healthy diet Special Instructions: Please be sure to take all medications as directed. There have been no changes made to your daily medication regimen. It is important to follow up with your primary care doctor, Dr. Mcdonough as well as your county extension agent in [place] as you requested. I strongly advise and encourage you to stop smoking, as this may lead to further deterioration of your health. Thank you for allowing us to participate in your care, it was truly a pleasure to have you for our patient!!! Discharge Disposition: HOME SELF-CARE <Kim Mercado - Last Filed: 12/17/20 18:07> Providers Date of admission: 12/14/20 23:52 Attending physician: Robert Almazan MD Primary care physician: Noah Mcdonough
== END 2020-12-17 14:28 | disposition home or self-care (01) ==
LOC: EC 21:34 → 6NMEDSUR 23:52
PROVIDERS: ADMIT Internal Medicine; ATTEND Internal Medicine
DX: M94.0 Chondrocostal junction syndrome [Tietze] (principal); I25.10 Atherosclerotic heart disease of native coronary artery without angina pectoris; J98.11 Atelectasis; D72.829 Elevated white blood cell count, unspecified; G89.29 Other chronic pain; M54.2 Cervicalgia; E78.5 Hyperlipidemia, unspecified; N40.0 Benign prostatic hyperplasia without lower urinary tract symptoms; F17.210 Nicotine dependence, cigarettes, uncomplicated; Z20.822 Contact with and (suspected) exposure to COVID-19; Z79.891 Long term (current) use of opiate analgesic; Z79.82 Long term (current) use of aspirin; Z79.899 Other long term (current) drug therapy; Z88.6 Allergy status to analgesic agent; Z88.8 Allergy status to other drugs, medicaments and biological substances; Z95.1 Presence of aortocoronary bypass graft; Z86.79 Personal history of other diseases of the circulatory system; Z98.1 Arthrodesis status; Z98.890 Other specified postprocedural states; Z82.49 Family history of ischemic heart disease and other diseases of the circulatory system; Z71.6 Tobacco abuse counseling
CPT/HCPCS: 96372 ×3; 96374; 99285; 36415; 93005; 93306; 93351; 85379; 80061; 80053; 83735; 84484 ×2; 85025; 85027; 85610; 85730; 87635; 71046; G0378 ×3; J2270; J1644 ×3